=== PATIENT | female | born 1995 | race Asian ===

== ENCOUNTER 2020-01-02 15:00 | Inpatient (IN) | payer BC ==
[~2020-01-02] VITALS: Ht 154.9 cm; Wt 84.0 kg
[2020-01-02] MEDS ORDERED: D5%-LACTATED RINGERS 1,000 ML IV SCH ×2 (16:04→17:50)
[2020-01-02] MEDS ORDERED: OXYTOCIN 30U/ 0.9% NaCL 500ML 500 ML IV ONE (16:04)
[2020-01-02 16:13] VITALS: BP 118/75
[2020-01-02 16:30] LABS: BASOPHILS # (AUTO) 0.03 x10^3/uL (0-0.1); BASOPHILS % (AUTO) 0 % (0-1); EOSINOPHILS # (AUTO) 0.07 x10^3/uL (0-0.4); EOSINOPHILS % (AUTO) 1 % (1-7); LYMPHOCYTES # (AUTO) 1.55 x10^3/uL (1-3.4); LYMPHOCYTES % (AUTO) 16 % (22-44); MD NO; MEAN CORPUSCULAR HEMOGLOBIN 27.3 pg (27.0-34.8); MEAN CORPUSCULAR HGB CONC 32.6 g/dL (32.4-35.8); MEAN PLATELET VOLUME 7.4 fL (7.4-10.4); MONOCYTES # (AUTO) 0.56 x10^3/uL (0.2-0.8); MONOCYTES % (AUTO) 6 % (2-9); NEUTROPHILS # (AUTO) 7.64 x10^3/uL (1.8-6.8); NEUTROPHILS % (AUTO) 78 % (42-75); PLATELET COUNT 344 x10^3/uL (130-400); RED BLOOD COUNT 3.97 x10^6/uL (3.82-5.3); RED CELL DISTRIBUTION WIDTH 17.5 % (9.6-15.2)
[2020-01-02] MEDS ORDERED: FENTANYL PF 100 MCG/2ML IVPush PRN (16:30)
[2020-01-02] MEDS ORDERED: SODIUM CITRATE/CITRIC ACID 30 ML UDC PO PRN (16:30)
[2020-01-02] MEDS ORDERED: ONDANSETRON 2MG/ML, 2ML IVPush PRN (16:30)
[2020-01-02] MEDS ORDERED: METOCLOPRAMIDE 5 MG/ML, 2ML IVPush PRN (16:30)
[2020-01-02] MEDS ORDERED: FENTANYL PF 100 MCG/2ML IV PRN (16:30)
[2020-01-02] MEDS ORDERED: TERBUTALINE 1 MG/ML, 1ML IVPush PRN (16:30)
[2020-01-02] MEDS ORDERED: TERBUTALINE 1 MG/ML, 1ML SQ PRN (16:30)
[2020-01-02 16:44] LABS: ALANINE AMINOTRANSFERASE 18 U/L (12-78); ALBUMIN 2.6 g/dL (3.4-5.0); ANION GAP 11 mmol/L (5-15); CHLORIDE 106 mmol/L (98-107)
[2020-01-02 16:47] LABS: MICROSCOPIC NOT IND
[2020-01-02 16:47] LABS: ALKALINE PHOSPHATASE 246 U/L (45-117); BILIRUBIN,TOTAL 0.5 mg/dL (0.2-1.0); CREATININE 0.78 mg/dL (0.55-1.02); TOTAL PROTEIN 7.2 g/dL (6.4-8.2)
[2020-01-02] MEDS ORDERED: LACTATED RINGERS 1,000 ML IV SCH (17:50)
[2020-01-02] MEDS ORDERED: OXYTOCIN 30U/ 0.9% NaCL 500ML 500 ML IV PRN (17:50)
[2020-01-02] MEDS ORDERED: LIDOCAINE 1%, 20ML ONE (17:56)
[2020-01-02] MEDS ORDERED: MISOPROSTOL 25 MCG TABLET ONE (17:56)
[2020-01-02] MEDS ORDERED: NEWBORN KIT ONE (17:56)
[2020-01-02] MEDS ORDERED: MISOPROSTOL 200 MCG TABLET ONE (17:57)
[2020-01-02] MEDS ORDERED: OXYTOCIN 30U/ 0.9% NaCL 500ML 500 ML ONE (17:57)
[2020-01-02] MEDS ORDERED: MISOPROSTOL 25 MCG TABLET VG PRN (18:00)
[2020-01-02] MEDS: LACTATED RINGERS 1,000 ML IV SCH (22:32)
[2020-01-02] MEDS ORDERED: TERBUTALINE 1 MG/ML, 1ML ONE (23:49)
[2020-01-03] MEDS: LACTATED RINGERS 1,000 ML IV SCH ×6 (00:07→14:49)
[2020-01-03] MEDS ORDERED: FENTANYL/BUPIV./NS/PF 250 ML EPIDCONT ONE (00:40)
[2020-01-03] MEDS ORDERED: BUPIVACAINE 0.25% ONE (00:40)
[2020-01-03] MEDS ORDERED: TERBUTALINE 1 MG/ML, 1ML ONE (03:31)
[2020-01-03] MEDS ORDERED: METOCLOPRAMIDE 5 MG/ML, 2ML ONE (03:38)
[2020-01-03] MEDS ORDERED: CEFAZOLIN 1,000 MG ONE ×2 (03:50)
[2020-01-03] MEDS ORDERED: OXYTOCIN 10 UNITS/ML, 1ML ONE ×3 (03:50→04:08)
[2020-01-03] MEDS ORDERED: LIDOCAINE/MPF 2%-EPI 1:200K, 20 ML ONE (03:51)
[2020-01-03] MEDS ORDERED: FENTANYL PF 100 MCG/2ML ONE (03:58)
[2020-01-03] MEDS: KETOROLAC 30 MG/1 ML IV SCH ×5 (05:00→23:42)
[2020-01-03] MEDS ORDERED: SIMETHICONE 80 MG CHEW TAB PO PRN (05:00)
[2020-01-03] MEDS ORDERED: ONDANSETRON 2MG/ML, 2ML IVPush PRN (05:00)
[2020-01-03] MEDS ORDERED: ONDANSETRON 2MG/ML, 2ML IV PRN (05:00)
[2020-01-03] MEDS ORDERED: ACETAMINOPHEN 325 MG TABLET PO PRN (05:00)
[2020-01-03] MEDS ORDERED: OXYcodone 5 MG/5 ML ORAL.SOL UDC PO PRN (05:00)
[2020-01-03] MEDS ORDERED: EPHEDRINE 50 MG/ML, 1ML IVPush PRN (05:00)
[2020-01-03] MEDS ORDERED: morphine SULFATE 10 MG/ML, 1ML IVPush PRN (05:00)
[2020-01-03] MEDS ORDERED: MEPERIDINE/PF 25MG/0.5ML IVPush PRN (05:00)
[2020-01-03] MEDS ORDERED: MISOPROSTOL 200 MCG TABLET PR PRN (05:00)
[2020-01-03] MEDS ORDERED: FENTANYL PF 100 MCG/2ML IV PRN (05:00)
[2020-01-03] MEDS ORDERED: LABETALOL 5MG/ML, 20ML IV PRN (05:00)
[2020-01-03] MEDS ORDERED: DIPHENHYDRAMINE 50 MG/ML, 1ML IVPush PRN (05:00)
[2020-01-03] MEDS ORDERED: PROMETHAZINE 25 MG/ML, 1ML IVPush PRN (05:00)
[2020-01-03] MEDS ORDERED: OXYcodone 5 MG/5 ML ORAL.SOL UDC ONE (06:34)
[2020-01-03] MEDS: OXYTOCIN 30U/ 0.9% NaCL 500ML 500 ML IV SCH ×2 (06:36→14:49)
[2020-01-03 07:25] VITALS: BP 108/63
[2020-01-03] MEDS: OXYcodone IR 5MG TABLET PO PRN ×4 (08:16→22:04)
[2020-01-03] MEDS: MEPERIDINE/PF 50 MG/ML IM PRN ×2 (08:57→11:55)
[2020-01-03] MEDS: PRENATAL VIT/IRON/FA 1 EACH TABLET PO SCH (09:00)
[2020-01-03 11:53] LABS: BASOPHILS # (AUTO) 0.04 x10^3/uL (0-0.1); BASOPHILS % (AUTO) 0 % (0-1); EOSINOPHILS # (AUTO) 0.01 x10^3/uL (0-0.4); EOSINOPHILS % (AUTO) 0 % (1-7); LYMPHOCYTES # (AUTO) 1.15 x10^3/uL (1-3.4); LYMPHOCYTES % (AUTO) 9 % (22-44); MD NO; MEAN PLATELET VOLUME 7.2 fL (7.4-10.4); MONOCYTES # (AUTO) 0.66 x10^3/uL (0.2-0.8); MONOCYTES % (AUTO) 5 % (2-9); NEUTROPHILS # (AUTO) 10.47 x10^3/uL (1.8-6.8); NEUTROPHILS % (AUTO) 85 % (42-75); PLATELET COUNT 292 x10^3/uL (130-400); RED BLOOD COUNT 3.29 x10^6/uL (3.82-5.3); RED CELL DISTRIBUTION WIDTH 17.4 % (9.6-15.2)
[2020-01-03 12:35] VITALS: BP 122/75
[2020-01-03 17:05] VITALS: BP 117/74
[2020-01-03 20:00] VITALS: BP 117/79
[2020-01-03 23:46] VITALS: BP 117/76
[2020-01-04 04:50] VITALS: BP 112/74
[2020-01-04] MEDS: KETOROLAC 30 MG/1 ML IV SCH ×4 (04:53→17:24)
[2020-01-04] MEDS: PRENATAL VIT/IRON/FA 1 EACH TABLET PO SCH (08:17)
[2020-01-04] MEDS: DOCUSATE 100 MG CAPSULE PO PRN (08:17)
[2020-01-04] MEDS: OXYcodone IR 5MG TABLET PO PRN ×4 (08:17→23:59)
[2020-01-04 08:28] VITALS: BP 121/84
[2020-01-04] MEDS: IBUPROFEN 600 MG TABLET PO PRN (17:26)
[2020-01-04 19:49] VITALS: BP 115/78
[2020-01-05] MEDS: IBUPROFEN 600 MG TABLET PO PRN ×3 (06:34→13:18)
[2020-01-05] MEDS: OXYcodone IR 5MG TABLET PO PRN ×3 (06:34→16:04)
[2020-01-05 07:40] VITALS: BP 115/79
[2020-01-05] MEDS: PRENATAL VIT/IRON/FA 1 EACH TABLET PO SCH (08:23)
[2020-01-05] MEDS: DOCUSATE 100 MG CAPSULE PO PRN (08:23)
[2020-01-05] MEDS ORDERED: IBUP-1222 PO (09:14)
[2020-01-05] MEDS ORDERED: OXYC5CAP2 PO (09:16)
== END 2020-01-05 17:20 | disposition home or self-care (01) | DRG 788 ==
LOC: EDIP 15:00 → LDIP 16:06 → 2NW 01-03 07:09
PROVIDERS: ADMIT Obstetrics & Gynecology; ATTEND Obstetrics & Gynecology
PROC: 10D00Z1 Extraction of Products of Conception, Low, Open Approach (ICD-10-PCS; principal; 2020-01-03)
PROC: 10H07YZ Insertion of Other Device into Products of Conception, Via Natural or Artificial Opening (ICD-10-PCS; 2020-01-03)
DX: O13.4 Gestational [pregnancy-induced] hypertension without significant proteinuria, complicating childbirth (principal); Z37.0 Single live birth; Z3A.39 39 weeks gestation of pregnancy; Z20.828 Contact with and (suspected) exposure to other viral communicable diseases; O36.8330 Maternal care for abnormalities of the fetal heart rate or rhythm, third trimester, not applicable or unspecified
CPT/HCPCS: 36415; J7121; 80053; 81003; 82570; 84156; 84550; 85025; 86592; 86780; 86850; 86900; 87635; G0378; J0690; J1885; J2175; J3010; J3490; J2590; J7120

== ENCOUNTER 2020-02-11 13:57 | Emergency (ER) | payer BC ==
[~2020-02-11] VITALS: Ht 154.9 cm; Wt 73.8 kg
[~2020-02-11 13:57] MED LIST: IBUP-1222 PO; OXYC5CAP2 PO
[2020-02-11 14:45] LABS: ALBUMIN 3.8 g/dL (3.4-5.0); ANION GAP 5 mmol/L (5-15); CALCIUM 9.9 mg/dL (8.5-10.1); CHLORIDE 110 mmol/L (98-107)
[2020-02-11 14:46] LABS: BASOPHILS % (AUTO) 1 % (0-1); EOSINOPHILS % (AUTO) 2 % (1-7); LYMPHOCYTES % (AUTO) 27 % (22-44); MEAN CORPUSCULAR HEMOGLOBIN 26.3 pg (27.0-34.8); MEAN PLATELET VOLUME 7.3 fL (7.4-10.4); MONOCYTES % (AUTO) 5 % (2-9); NEUTROPHILS % (AUTO) 65 % (42-75); PLATELET COUNT 385 x10^3/uL (130-400); RED BLOOD COUNT 4.58 x10^6/uL (3.82-5.3); RED CELL DISTRIBUTION WIDTH 18.1 % (9.6-15.2)
[2020-02-11 14:52] LABS: ALANINE AMINOTRANSFERASE 31 U/L (12-78); ALKALINE PHOSPHATASE 192 U/L (45-117); BILIRUBIN,TOTAL 0.6 mg/dL (0.2-1.0); CREATININE 1.46 mg/dL (0.55-1.02); MD NO; TOTAL PROTEIN 7.8 g/dL (6.4-8.2)
--- NOTE | 2020-02-11 15:38 | NUR ---
EKG AT BS
--- NOTE | 2020-02-11 15:40 | NUR ---
C/O RUQ PAIN X 3 DAYS; WAKES W/ PAIN & PAIN WORSENS OVER THE DAY. SOMETIMES WORSENS AFTER EATING. IBUPROFEN FOR PAIN (NONE TODAY). DENIES N/V, DIARRHEA, CONSTIPATION, UTI SX. LMP: UNKNOWN - DELIEVERED BABY 5 WKS AGO. DENIES PROBLEM W/ ; HAD A C-SECT; BABY IN [facility] HEALTH. LAST BM: YESTERDAY. LAST ORAL INTAKE: 1000 TODAY
--- NOTE | 2020-02-11 15:47 | NUR ---
PT NOTIFIED OF NEED FOR URINE SPECIMEN. U/S NOW AT BS
[2020-02-11] MEDS ORDERED: ONDANSETRON 2MG/ML, 2ML IVPush ONE (17:30)
[2020-02-11] MEDS ORDERED: MORPHINE SULFATE 4 MG/ML, 1ML IVPush PRN (17:30)
--- NOTE | 2020-02-11 17:35 | NUR ---
PT REFUSED PAIN MED HERE. UA TO BE CANCELLED, PER DR BENAVIDEZ
[2020-02-11 17:46] VITALS: BP 119/84
== END 2020-02-11 17:48 | disposition home or self-care (01) ==
LOC: ED 15:05
DX: N28.9 Disorder of kidney and ureter, unspecified (principal); K80.50 Calculus of bile duct without cholangitis or cholecystitis without obstruction; R94.31 Abnormal electrocardiogram [ECG] [EKG]; R10.11 Right upper quadrant pain
CPT/HCPCS: 36415; 76700; 80053; 83690; 84703; 85025; 93005; 99285